=== PATIENT | female | born 1995 | race Caucasian/White ===

== ENCOUNTER → 2020-03-07 | Outpatient (REF) | payer OTHER ==
[2020-03-07 13:51] LABS: HEMATOCRIT 41.5 % (36.0-47.0); HEMOGLOBIN 13.6 g/dl (12.0-15.5); MEAN CORPUSCULAR HEMOGLOBIN 27.7 pg (27.0-33.0); MEAN CORPUSCULAR HGB CONC 32.8 g/dl (32.0-36.5); MEAN CORPUSCULAR VOLUME 84.5 fl (80.0-96.0); PLATELET COUNT, AUTOMATED 300 10^3/uL (150-450); RED BLOOD COUNT 4.91 10^6/uL (4.00-5.40)
[2020-03-07 14:54] LABS: HCG, SERUM QUANTITATIVE 12308 MIU/ML
[2020-03-07 15:19] LABS: HEPATITIS C VIRUS ABY INDEX 0.1 INDEX (<0.8)
[2020-03-07 15:20] LABS: HIV 1&2 SCREEN CENTAUR NEGATIVE (NEGATIVE)
== END ==
LOC: M LAB REF 12:37
PROVIDERS: ATTEND Advanced Practice Midwife
DX: Z32.01 Encounter for pregnancy test, result positive (principal)

== ENCOUNTER → 2020-03-17 | Outpatient (CLI) | payer BC ==
--- NOTE | 2020-03-18 07:24 | REP ---
INDICATION: DATING COMPARISON: None. TECHNIQUE: Transabdominal 1st trimester obstetrical ultrasound with color Doppler evaluation. FINDINGS: Single live early intrauterine is appreciated. Gestational sac with yolk sac and pole identified. Hor[place]-rump length of 12 mm corresponds to 7 weeks 3 days gestational age with estimated date of delivery 10/31/2020. heart rate equals 155 beats per minute. Right mid terminal ovarian cyst consistent with corpus luteum. Cervix measures 3.4 cm in length and appears closed. IMPRESSION: Single live early intrauterine at 7 weeks 3 days gestational age. Complete anatomical assessment should be performed and 19-20 weeks. <Electronically signed by Tl Stanton > 03/18/20 [id number]
== END ==
LOC: M WHC 08:10
PROVIDERS: ATTEND Obstetrics & Gynecology
DX: O36.80X0 Pregnancy with inconclusive fetal viability, not applicable or unspecified (principal)

== ENCOUNTER → 2020-04-12 | Outpatient (CLI) | payer BC, OTHER ==
[2020-04-12 14:17] LABS: ALT/SGPT 18 U/L (12-78); BILIRUBIN,TOTAL 0.4 MG/DL (0.2-1.0); FREE THYROXINE INDEX 3.7 % (1.3-4.8); GLOMERULAR FILTRATION RATE > 60.0 (>60); LDH LACTATE DEHYDROGENASE 136 U/L (84-246); T UPTAKE 24 % (30-39); THYROID STIMULATING HORMONE 0.927 uIU/ML (0.358-3.740); THYROXINE (T4) 15.6 UG/DL (4.5-12.0); URIC ACID 3.7 MG/DL (2.6-6.0)
[2020-04-12 16:00] LABS: TOTAL PROTEIN 24 HOUR URINE 132.8 MG/24HR (50-150); URINE TOTAL PROTEIN 16.6 MG/DL (0-12)
== END ==
LOC: M LAB 12:48
PROVIDERS: ATTEND Obstetrics & Gynecology
DX: Z34.01 Encounter for supervision of normal first pregnancy, first trimester (principal); Z3A.00 Weeks of gestation of pregnancy not specified

== ENCOUNTER → 2020-06-13 | Outpatient (CLI) | payer BC ==
--- NOTE | 2020-06-13 11:39 | REP ---
INDICATION: ANATOMY. Established EZRA 25 October 2020, 20 weeks 6 days." COMPARISON: Comparison obstetric sonography 17 March 2020. EZRA by prior sonography October 31, 2020.. TECHNIQUE: Transabdominal obstetric sonography. FINDINGS: Scanning through the gravid uterus demonstrates a viable single intrauterine gestation in transverse head to the maternal left lie. motion is observed and heart rate is recorded at 156 beats per minute. A posterior and right lateral placenta is seen, grade 1, without evidence of placenta previa. Closed cervical length is measured at 5.5 cm transabdominally. No extrauterine abnormality is observed. Amniotic fluid is subjectively normal. The following anatomic structures are identified felt to be unremarkable: cranium and intracranial contents, lungs, diaphragm, left-sided stomach, abdominal wall cord insertion, right and left kidney, urinary bladder, spine, upper and lower extremities, three-vessel cord. The following anatomic structures are less than optimally seen: face and profile nose and lips, four-chamber heart and left and right ventricular outflow tract views.. Biometry chart: BPD 4.8 cm, 20 weeks 4 days Head circumference 17.5 cm, 20 weeks 0 days Abdominal circumference 15.0 cm, 20 weeks 2 days Femur length 3.3 cm, 20 weeks 2 days Humeral length 3.2 cm, 20 weeks 6 days HC AC ratio normal 1.17 Cephalic index normal 0.77 Estimated weight 343 g, 0 lb 12 oz, 17th percentile for 20 weeks 6 days IMPRESSION: Viable single intrauterine gestation at 20 weeks 3 days by today's composite sonographic criteria. EZRA by today's sonography October 28, 2020. No complication identified. Expected gestational age estimate by "established" EZRA of 20 weeks 6 days is October 25, 2020. anatomic survey is less than complete due to position as above. <Electronically signed by Delmar Mcgee > 06/13/20 [id number]
== END ==
LOC: M WHC 09:22
PROVIDERS: ATTEND Obstetrics & Gynecology
DX: Z36.89 Encounter for other specified antenatal screening (principal); Z34.02 Encounter for supervision of normal first pregnancy, second trimester

== ENCOUNTER → 2020-08-04 | Outpatient (CLI) | payer BC ==
--- NOTE | 2020-08-04 10:35 | REP ---
INDICATION: F/U ANATOMY COMPARISON: 06/13/2020 TECHNIQUE: Transabdominal obstetrical ultrasound with color Doppler evaluation. FINDINGS: Examination demonstrates a single live intrauterine in cephalic presentation. motion is identified by technologist. Placenta is noted posterior and grade 1 without evidence for placenta previa or abruption. Amniotic fluid volume is normal. Cervix measures 4.8 cm in length and appears closed.. Selected gestational age: 28 weeks 2 days with EZRA 10/25/2020. Gestational age by current measurements 28 weeks 2 days with EZRA 10/25/2020. FHR equals 144 beats per minute. Estimated weight 1198 grams (36thpercentile). Anatomical assessment demonstrates normal structures including cranium, choroid plexus, cavum, cerebellum/posterior fossa, facial features, lungs, four-chamber heart/ventricular outflow tracts, diaphragm, stomach, cord insertion/three-vessel cord, kidneys/bladder, and extremities. IMPRESSION: Single live intrauterine in cephalic presentation demonstrating appropriate interval growth. In conjunction with prior examination anatomical assessment is complete and normal. <Electronically signed by Tl Stanton > 08/04/20 [id number]
== END ==
LOC: M WHC 07:54
PROVIDERS: ATTEND Advanced Practice Midwife
DX: Z34.82 Encounter for supervision of other normal pregnancy, second trimester (principal)

== ENCOUNTER → 2020-08-06 | Outpatient (CLI) | payer BC ==
[2020-08-06 12:24] LABS: HEMATOCRIT 34.3 % (36.0-47.0); HEMOGLOBIN 10.9 g/dl (12.0-15.5); MEAN CORPUSCULAR HEMOGLOBIN 27.3 pg (27.0-33.0); MEAN CORPUSCULAR HGB CONC 31.8 g/dl (32.0-36.5); PLATELET COUNT, AUTOMATED 237 10^3/uL (150-450); RED BLOOD COUNT 3.99 10^6/uL (4.00-5.40)
== END ==
LOC: M LAB 10:48
PROVIDERS: ATTEND Advanced Practice Midwife
DX: Z34.82 Encounter for supervision of other normal pregnancy, second trimester (principal)